=== PATIENT | male | born 2000 | race American Indian/Alaskan Native ===

== ENCOUNTER 2018-01-25 22:37 | Emergency (ER) | payer OTHER ==
[2018-01-26] MEDS ORDERED: MOTRIN ONE (05:37)
[2018-01-26] MEDS ORDERED: MOTRIN PO ONE (05:38)
--- NOTE | 2018-01-26 06:43 | Emergency Department Report ---
Earache (Pediatric) - HPI Chief Complaint: Earache Stated Complaint: EAR PAIN Time Seen by Provider: 01/26/18 06:12 Duration: 1 Day Location: Bilateral Severity: Moderate Symptoms: Yes URI, Yes Cough, No Sore Throat, No Trauma to EAC, No History of Moisture in Ear, No Fever, No Vomiting, No Shortness of Breath Other History: This is a 17 year old male accompanied by father with bilateral ear pain that started last night when he woke up. Patient reports pain is worse with swallowing. It is constant and achy. Pain is 10/10 on pain scale. Patient reports recovering from a cold. He was coughing a lot 2 days ago. He is taking advil and cough drops with no improvement of symptoms. Denies sore throat, tinnitis, discharge from ears, change in hearing, chest pain, and nausea or vomiting. ED Review of Systems ROS: Stated complaint: EAR PAIN Other details as noted in HPI Constitutional: denies: chills, fever ENT: ear pain (bilateral), congestion. denies: throat pain, dental pain, hearing loss, epistaxis Respiratory: cough. denies: orthopnea, shortness of breath, SOB with exertion, wheezing Cardiovascular: denies: chest pain, palpitations, dyspnea on exertion, orthopnea , edema Gastrointestinal: denies: abdominal pain, nausea, vomiting, diarrhea Neurological: denies: headache, weakness, paresthesias Psychiatric: denies: anxiety, depression Peds Earache exam - Exam General: Vital signs noted. No distress. Alert and acting appropriately. HEENT: Yes Pharyngeal Erythema, Yes Moist Mucous Membranes, Yes Rhinorrhea, No Pharyngeal Exudates, No Conjuctival Injection, No Frontal Tenderness, No Maxillary Tenderness Ear: Both TM Bulge, Both TM Erythema, Both EAC Pain, Neither EAC Discharge, Neither Cerumen Impaction Peds Neck exam: Adenopathy: No, Supple: Yes Peds Lung exam: Good Air Exchange: Yes, Wheezes: No, Stridor: No, Cough: Yes, Nasal Flaring: No, Retractions: No, Use of Accessory Muscles: No Heart: Yes Regular, No Murmur Peds abdomen: Abdominal Tenderness: No, Peritoneal Signs: No, Normal Bowel Sounds: Yes, Distention: No Peds Skin Exam: Rash: No, Eczema: No Neurologic: Alert and oriented, no deficits. Musculoskeletal: Unremarkable. ED Course Vital Signs 01/25/18 23:15 Temperature 97.6 F Pulse Rate 77 Respiratory 16 Rate Blood Pressure 143/83 O2 Sat by Pulse 100 Oximetry ED Medical Decision Making - Medical Decision Making This is a 17 y.o. male with father at bedside. He presents with bilateral ear pain for 1 day. Patient reports waking up 6 hours ago to severe pain bilaterally to ears. Patient is stable and was examined by me. Vitals normal. Physical assessment susceptible of otitis media of both ears. Start amoxicillin , tylenol or ibuprofen for pain. Discussed plan with patient and he agreed with plan. Discharged home in stable condition. Follow up with PCP in 24-72 hours. Critical care attestation.: If time is entered above; I have spent that time in minutes in the direct care of this critically ill patient, excluding procedure time. ED Disposition Clinical Impression: Otalgia of both ears Otitis media Qualifiers: Otitis media type: suppurative Chronicity: acute Laterality: bilateral Recurrence: not specified as recurrent Spontaneous tympanic membrane rupture: without spontaneous rupture Qualified Code(s): H66.003 - Acute suppurative otitis media without spontaneous rupture of ear drum, bilateral Disposition: - TO HOME OR SELFCARE Is pt being admited?: No Does the pt Need Aspirin: No Condition: Stable Instructions: Otitis Media (ED) Additional Instructions: Give tylenol or ibuprofen for pain every 6-8 hours. Take antibiotics as prescribed to avoid recurrence of the ear infection. Avoid high altitudes, may worsen the pain during ear infection. If symptoms do not improve within 2 to 3 days, then follow up with Primary Care Provider. Prescriptions: Amoxicillin 500 mg PO BID 10 Days #20 tab Referrals: [facility] [Outside] - 3-5 Days [facility] [Outside] - 3-5 Days [facility] [Outside] - 3-5 Days Forms: Work/School Release Form(ED), Accompanied Note Time of Disposition: 06:45 Print Language: SWEDISH
[2018-01-26 07:17] VITALS: BP 141/72
== END 2018-01-26 07:15 | disposition home or self-care (01) ==
LOC: ED 22:37
DX: H66.003 Acute suppurative otitis media without spontaneous rupture of ear drum, bilateral (principal); R05 Cough
CPT/HCPCS: 99282